=== PATIENT | female | born 1995 | race Two or more races ===

== ENCOUNTER 2022-04-25 02:50 | Emergency (ER) | payer OTHER ==
[~2022-04-25] VITALS: Ht 167.6 cm; Wt 68.0 kg
[2022-04-25] MEDS ORDERED: LEVSIN/SL0.125 MG PO (06:11)
[2022-04-25] MEDS ORDERED: PEPCID AC20 MG PO (06:11)
[2022-04-25] MEDS ORDERED: KETO10TA2 PO (06:11)
== END 2022-04-25 06:16 ==
LOC: ER 02:50
DX: K80.50 Calculus of bile duct without cholangitis or cholecystitis without obstruction (principal)